=== PATIENT | male | born 1950 | race Caucasian/White ===

== ENCOUNTER 2016-09-29 14:19 | Emergency (ER) | payer OTHER ==
[2016-09-29 14:24] VITALS: BP 153/88; PULSE 67; TEMP 98.4; BMI 30.2
--- NOTE | 2016-09-29 14:43 | PDOC ---
History of Present Illness - General Chief Complaint: Injury Stated Complaint: FELL Time Seen by Provider: 09/29/16 14:27 History Source: Patient Exam Limitations: No Limitations - History of Present Illness Initial Comments: 09/29/16 14:30 slipped and fell onto Severity: reports: mild, moderate Pain Location: reports: pelvis Method of Injury: Yes: fall Modifying Factors: improves with: None Loss of Consciousness: no loss of consciousness Past History - Travel Traveled outside of the country in the last 30 days: No Close contact w/someone who was outside of country & ill: No - Past Medical History Allergies/Adverse Reactions: Allergies Allergy/AdvReac Type Severity Reaction Status Date / Time No Known Allergies Allergy Verified 09/29/16 14:20 Home Medications: Ambulatory Orders Metformin HCl [Glucophage -] 1,000 mg PO BID 06/02/13 Lisinopril [Prinivil -] 20 mg PO DAILY 03/01/14 Aspirin Coated [Ecotrin -] 81 mg PO DAILY 07/28/15 Glyburide 5 mg PO BID 07/28/15 Pregabalin [Lyrica -] 200 mg PO HS 07/28/15 Sitagliptin Phosphate [Januvia] 25 mg PO DAILY 07/28/15 Oxycodone HCl/Acetaminophen [Percocet 5-325 mg Tablet -] 1 - 2 tab PO Q4H PRN # 10 tablet MDD 4 09/29/16 Anemia: No Asthma: No Cancer: Yes (PROSTATE) Cardiac Disorders: No CVA: Yes (tia minor stroke 2005) COPD: No CHF: No Dementia: No Diabetes: Yes (niddm) GI Disorders: No Disorders: Yes (PROSTATE CA) HTN: No Hypercholesterolemia: No Kidney Stones: (enlarged prostate) Liver Disease: Yes (FATTY LIVER) Seizures: No Thyroid Disease: No - Surgical History Abdominal Surgery: Yes (right inguinal hernia repair.) Appendectomy: No Cardiac Surgery: No Cholecystectomy: No Lung Surgery: No Neurologic Surgery: No Orthopedic Surgery: No - Psycho/Social/Smoking Cessation Hx Anxiety: No Suicidal Ideation: No Smoking History: Never smoked Have you smoked in the past 12 months: No Number of Cigarettes Smoked Daily: 1 If you are a former smoker, when did you quit?: 18 MONTH AGO Information on smoking cessation initiated: No 'Breaking Loose' booklet given: 10/13/13 Hx Alcohol Use: No Drug/Substance Use Hx: No Substance Use Type: None Hx Substance Use Treatment: No Review of Systems - Review of Systems Able to Perform ROS?: Yes Is the patient limited Mongolian proficient: Yes Constitutional: Yes: See HPI. No: Symptoms Reported HEENTM: No: Symptoms Reported Respiratory: No: Symptoms reported Musculoskeletal: Yes: Symptoms Reported, Back Pain Integumentary: Yes: Symptoms Reported, Other (superficial and partial-thickness sanchez secondary to heating pad use) Neurological: Yes: Headache All Other Systems: Reviewed and Negative *Physical Exam - Vital Signs Last Vital Signs Temp Pulse Resp BP Pulse Ox 98.4 F 67 18 153/88 100 09/29/16 14:21 09/29/16 14:21 09/29/16 14:21 09/29/16 14:21 09/29/16 14:21 - Physical Exam General Appearance: Yes: Nourished, Appropriately Dressed, Apparent Distress, Mild Distress HEENT: positive: JAELYN, Normal ENT Inspection, TMs Normal Respiratory/Chest: positive: Lungs Clear, Normal Breath Sounds Musculoskeletal: positive: Normal Inspection, Vertebral Tenderness (at coccyx- with swelling, and fading ecchymoses at distal coccyx) Extremity: positive: Normal Capillary Refill, Normal Range of Motion Integumentary: positive: Pale, Swelling, Bruising, Other (multiple patches of healing partial-thickness sanchez without evidence of cellulitis, ) 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 Patient will be treated conservatively, #10 Percocet tablets provided Medical Decision Making - Medical Decision Making 09/29/16 14:48 *DC/Admit/Observation/Transfer Diagnosis at time of Disposition: Pain, coccyx - Discharge Dispostion Disposition: HOME Condition at time of disposition: Stable Admit: No - Prescriptions Prescriptions: Oxycodone HCl/Acetaminophen [Percocet 5-325 mg Tablet -] 1 - 2 tab PO Q4H PRN # 10 tablet MDD 4 PRN Reason: Pain - Referrals Referrals: Eloisa Dailey MD [Primary Care Provider] - - Patient Instructions Printed Discharge Instructions: DI for Coccyx Fracture Additional Instructions: Rest, ice to area on and off for 15 minutes 4-6 times a day Avoid heavy lifting or exercise until pain and swelling is resolved or until further directed May use inflatable doughnut, soft small pillow to protect coccyx Followup with pcp in one to 2 days if not improving, May use ibuprofen 2-200 mg tablets every 6 hours as needed for pain May use one half to one tablet of Percocet every 6 hours as needed for severe pain, understanding will make dizzy and sleepy - Post Discharge Activity Work/School Note: Back to Work
== END 2016-09-29 14:58 | disposition home or self-care (01) ==
LOC: JERFT 14:19
DX: S32.2XXA Fracture of coccyx, initial encounter for closed fracture (principal); W19.XXXA Unspecified fall, initial encounter; Y93.89 Activity, other specified; Y92.89 Other specified places as the place of occurrence of the external cause; I10 Essential (primary) hypertension; E11.9 Type 2 diabetes mellitus without complications; Z79.84 Long term (current) use of oral hypoglycemic drugs; Z86.73 Personal history of transient ischemic attack (TIA), and cerebral infarction without residual deficits; Z85.46 Personal history of malignant neoplasm of prostate
CPT/HCPCS: 99281-25

== ENCOUNTER 2018-04-23 19:14 | Emergency (ER) | payer SELFPAY ==
[2018-04-23 19:46] VITALS: BP 115/68; PULSE 71; TEMP 98; BMI 29.9
--- NOTE | 2018-04-23 19:46 | PDOC ---
Rapid Medical Evaluation Chief Complaint: Pain, Acute Medical Evaluation: Allergies Allergy/AdvReac Type Severity Reaction Status Date / Time No Known Allergies Allergy Verified 09/29/16 14:20 04/23/18 19:43 I have performed a brief in-person evaluation of this patient. The patient presents with a chief complaint of:right shoulder pain x 1 year, past week worsening. No fevers Pertinent physical exam findings: shoulder capsule pain with mild immobility I have ordered the following: right shoulder The patient will proceed to the ED for further evaluation. Discharge Disposition - Referrals Referrals: Eloisa Dailey MD [Primary Care Provider] - - Patient Instructions - Post Discharge Activity
[2018-04-23] MEDS ORDERED: methylPREDNISolone ACET (DEPO) 80 MG/1 ML VIAL IAR ONE (20:27)
[2018-04-23] MEDS ORDERED: BUPIVACAINE HCL/PF (5 MG/ML) 30 ML VIAL IJ ONE (20:28)
--- NOTE | 2018-04-23 20:37 | PDOC ---
History of Present Illness - General Chief Complaint: Pain, Acute Stated Complaint: RIGHT ARM PAIN Time Seen by Provider: 04/23/18 20:14 - History of Present Illness Initial Comments: 04/23/18 20:32 68-year-old male with a past medical history significant for hypertension and diabetes presents for evaluation of right shoulder pain 1 year. He states his shoulder pain has been getting progressively worse over the last year with an exacerbation over the last week without any precipitating traumatic event. Past History - Past Medical History Allergies/Adverse Reactions: Allergies Allergy/AdvReac Type Severity Reaction Status Date / Time No Known Allergies Allergy Verified 04/23/18 19:46 Home Medications: Ambulatory Orders metFORMIN HCL [Glucophage -] 1,000 mg PO BID 06/02/13 Lisinopril [Prinivil -] 20 mg PO DAILY 03/01/14 Aspirin Coated [Ecotrin -] 81 mg PO DAILY 07/28/15 Glyburide 5 mg PO BID 07/28/15 Pregabalin [Lyrica -] 200 mg PO HS 07/28/15 Sitagliptin Phosphate [Januvia] 25 mg PO DAILY 07/28/15 Oxycodone HCl/Acetaminophen [Percocet 5-325 mg Tablet -] 1 - 2 tab PO Q4H PRN # 10 tablet MDD 4 09/29/16 Anemia: No Asthma: No Cancer: Yes (PROSTATE) Cardiac Disorders: No CVA: Yes (tia minor stroke 2005) COPD: No CHF: No Dementia: No Diabetes: Yes (niddm) GI Disorders: No Disorders: Yes (PROSTATE CA) HTN: No Hypercholesterolemia: No Kidney Stones: (enlarged prostate) Liver Disease: Yes (FATTY LIVER) Seizures: No Thyroid Disease: No - Surgical History Abdominal Surgery: Yes (right inguinal hernia repair.) Appendectomy: No Cardiac Surgery: No Cholecystectomy: No Lung Surgery: No Neurologic Surgery: No Orthopedic Surgery: No - Suicide/Smoking/Psychosocial Hx Smoking History: Never smoked Have you smoked in the past 12 months: No Number of Cigarettes Smoked Daily: 1 If you are a former smoker, when did you quit?: 18 MONTH AGO Information on smoking cessation initiated: No 'Breaking Loose' booklet given: 10/13/13 Hx Alcohol Use: No Drug/Substance Use Hx: No Substance Use Type: None Hx Substance Use Treatment: No Review of Systems - Review of Systems Constitutional: No: Fever Musculoskeletal: Yes: Joint Pain Neurological: Yes: Tingling *Physical Exam - Vital Signs Last Vital Signs Temp Pulse Resp BP Pulse Ox 98.0 F 71 16 115/68 99 04/23/18 19:44 12 19:44 1218 19:44 1218 19:44 04/23/18 19:44 - Physical Exam Comments: 04/23/18 20:33 Right shoulder skin color and temperature are normal range of motion is limited in external rotation and abduction full internal rotation and adduction. 4 out of 5 strength with super spinatus isolation and external rotation 5 out of 5 for flexion. Impingement maneuvers are positive he has no gross sensorimotor deficits is neurovascularly intact. Cervical spine skin color and temperature are normal he has mild right-sided paracervical musculature spasm and tenderness. No midline tenderness. 5 out of 5 strength in bilateral upper extremities including EPL finger abduction Wrist flexion and extension he has a positive Spurling maneuver on the right negative on the left. Moderate Sedation - Procedure Monitoring Vital Signs: Procedure Monitoring Vital Signs Temperature 98.0 F 04/23/18 19:44 Pulse Rate 71 04/23/18 19:44 Respiratory Rate 16 04/23/18 19:44 Blood Pressure 115/68 04/23/18 19:44 O2 Sat by Pulse Oximetry (%) 99 04/23/18 19:44 Medical Decision Making - Medical Decision Making 04/23/18 20:34 X-ray show arthritic changes moderate to severe about the before meals joint and calcific tendinitis which was not present from his x-rays in 2009. No gross destructive process. Had a long discussion with the patient regarding use may be a Medrol Dosepak for his radicular symptoms. He cannot take NSAIDs because of his NOEL inhibitor, he is in exquisite pain and he is requesting a cortisone shot for his right shoulder. I advised him to cortisone will make his sugar go up. Under aseptic technique 40 mg of Depo-Medrol and 8 mL of half percent Marcaine were injected into the subacromial space. This was tolerated well patient felt relief after the injection. 04/23/18 20:50 relief after R shoulder SA injection *DC/Admit/Observation/Transfer Diagnosis at time of Disposition: Calcific shoulder tendinitis, Cervical radiculopathy - Discharge Dispostion Disposition: HOME Condition at time of disposition: Stable Decision to Admit order: No - Referrals Referrals: Eloisa Dailey MD [Primary Care Provider] - Sandeep Zuluaga MD [Staff Physician] - - Patient Instructions Printed Discharge Instructions: Shoulder Tendinopathy, Calcific Tendonitis of the Shoulder, DI for Cervical Radiculopathy, DI for Calcific Tendonitis of the Shoulder Additional Instructions: Cortisone shot given in the emergency room today we'll increase her blood sugar. Please be sure to check her blood sugar gesture diet and medications accordingly. Follow-up with orthopedic surgery in 2-3 days for further evaluation and treatment options and return to the emergency room should symptoms worsen or go unresolved. He may take Tylenol as directed for pain. - Post Discharge Activity
== END 2018-04-23 21:07 | disposition home or self-care (01) ==
LOC: JERFT 19:14
CPT/HCPCS: 73030-TC-RT-FY; 99281-25

== ENCOUNTER 2022-04-18 19:33 | Emergency (ER) | payer SELFPAY ==
[2022-04-18 19:49] VITALS: BP 154/80; PULSE 71; RESP 20; TEMP 97.9; BMI 27.4
[2022-04-18] MEDS ORDERED: ACETAMINOPHEN 325 MG TABLET (FP) PO ONE (22:56)
[2022-04-18] MEDS ORDERED: ACETAMINOPHEN 325 MG TABLET (FP) ONE (23:26)
[2022-04-18] MEDS ORDERED: KETOROLAC TROMETHAMINE 30 MG/1 ML VIAL IM ONE (23:45)
[2022-04-18 23:51] LABS: BASO % 0.6 % (0-2.0); EOS % 3.2 % (0-4.5); HEMATOCRIT 32.5 % (35.4-49); HEMOGLOBIN 9.9 GM/dL (11.7-16.9); LYMPH % 19.7 % (8-40); MCH 23.5 pg (25.7-33.7); MCHC 30.5 g/dl (32.0-35.9); MEAN CELL VOLUME 77.1 fl (80-96); MONO % 11.4 % (3.8-10.2); NEUT % 65.1 % (42.8-82.8); PLATELET COUNT 380 10^3/uL (134-434); RBC 4.22 M/mm3 (4.00-5.60); RDW 18.8 % (11.9-15.9); WHITE BLOOD COUNT 9.6 K/mm3 (4.0-10.0)
[2022-04-19 00:08] LABS: CALCIUM 9.3 mg/dL (8.5-10.1)
[2022-04-19 00:09] LABS: BLOOD UREA NITROGEN 12.4 mg/dL (7-18)
[2022-04-19 00:13] LABS: BILIRUBIN,TOTAL 0.4 mg/dL (0.2-1); TOT PROT 7.9 g/dl (6.4-8.2)
[2022-04-19] MEDS ORDERED: KETOROLAC TROMETHAMINE 15 MG/ML VIAL ONE (00:22)
== END 2022-04-19 00:54 | disposition home or self-care (01) ==
LOC: JER 19:33
PROC: 3E023GC Introduction of Other Therapeutic Substance into Muscle, Percutaneous Approach (ICD-10-PCS; principal; 2022-04-18)
DX: M25.512 Pain in left shoulder (principal)
CPT/HCPCS: 36415; 71046-TC-FY; 73030-TC-LT-FY; 80053; 84484; 85025; 93005; 93010; 99285-25

== ENCOUNTER 2023-08-15 11:29 | Emergency (ER) | payer OTHER ==
[2023-08-15 11:32] VITALS: BP 150/75; PULSE 80; RESP 18; TEMP 97.6; BMI 26.6
[2023-08-15] MEDS ORDERED: KETOROLAC TROMETHAMINE 30 MG/1 ML VIAL ONE (12:33)
[2023-08-15] MEDS ORDERED: LIDOCAINE 4% PATCH TP ONE (12:33)
[2023-08-15] MEDS: LIDOCAINE 4% PATCH TP ONE (12:38)
[2023-08-15] MEDS: KETOROLAC TROMETHAMINE 30 MG/1 ML VIAL IM ONE (12:38)
== END 2023-08-15 13:54 | disposition home or self-care (01) ==
LOC: JERFT 11:29
PROC: 3E0233Z Introduction of Anti-inflammatory into Muscle, Percutaneous Approach (ICD-10-PCS; principal; 2023-08-15)
DX: M54.50 Low back pain, unspecified (principal)
CPT/HCPCS: 72131-TC; 99284-25

== ENCOUNTER 2023-10-27 11:38 | Emergency (ER) | payer OTHER ==
[2023-10-27 11:43] VITALS: BP 131/69; PULSE 81; RESP 16; TEMP 98.1; BMI 26.6
[2023-10-27] MEDS ORDERED: KETOROLAC TROMETHAMINE 30 MG/1 ML VIAL ONE (13:24)
[2023-10-27] MEDS ORDERED: LIDOCAINE 4% PATCH TP ONE (13:24)
[2023-10-27] MEDS: LIDOCAINE 5% TOPICAL PATCH TP ONE (13:30)
[2023-10-27] MEDS: KETOROLAC TROMETHAMINE 30 MG/1 ML VIAL IM ONE (13:31)
[2023-10-27] MEDS ORDERED: LIDOCAINE PATCH REMOVAL MC SCH (22:00)
== END 2023-10-27 13:54 | disposition home or self-care (01) ==
LOC: JERFT 11:38
PROC: 3E0133Z Introduction of Anti-inflammatory into Subcutaneous Tissue, Percutaneous Approach (ICD-10-PCS; principal; 2023-10-27)
DX: M54.41 Lumbago with sciatica, right side (principal)
CPT/HCPCS: 99284-25

== ENCOUNTER 2023-12-30 13:44 | Emergency (ER) | payer OTHER ==
[2023-12-30 13:56] VITALS: BP 154/77; PULSE 91; RESP 17; TEMP 98.5; BMI 26.1
[2023-12-30] MEDS ORDERED: LORATADINE 10 MG TABLET ONE (14:43)
[2023-12-30] MEDS: LORATADINE 10 MG TABLET PO ONE (14:44)
[2023-12-30 16:28] LABS: HIV INTERPRETATION NEGATIVE (NEGATIVE)
== END 2023-12-30 15:00 | disposition home or self-care (01) ==
LOC: JERFT 13:44
DX: R05.9 Cough, unspecified (principal); H10.13 Acute atopic conjunctivitis, bilateral; R09.81 Nasal congestion; J34.89 Other specified disorders of nose and nasal sinuses; J02.9 Acute pharyngitis, unspecified
CPT/HCPCS: 36415; 86803; 87389; 99283-25